=== PATIENT | male | born 1990 | race Hispanic/Latino ===

== ENCOUNTER 2017-03-30 11:42 | Emergency (ER) | payer BC | END 2017-03-30 12:18 | disposition home or self-care (01) | LOC: EDH 11:42 | DX: M54.5 Low back pain (principal); E11.9 Type 2 diabetes mellitus without complications; Z79.4 Long term (current) use of insulin; Z87.891 Personal history of nicotine dependence | CPT/HCPCS: 99281 ==

== ENCOUNTER 2017-06-27 | Emergency (ER) | payer BC, OTHER ==
[2017-06-27] MEDS ORDERED: LIDOCAINE HCL 2% JELLY 5 ML ONE (00:25)
[2017-06-27] MEDS ORDERED: TETANUS/DIPHTHERIA TOXOID [ADULT] 0.5 ML VIAL IM ONE (00:26)
[2017-06-27] MEDS ORDERED: ONDANSETRON ODT 4 MG TAB ONE (01:16)
[2017-06-27] MEDS ORDERED: MORPHINE SULFATE 8 MG/ML VIAL ONE (01:17)
== END 2017-06-27 01:31 | disposition home or self-care (01) ==
LOC: EDH
DX: T25.221A Burn of second degree of right foot, initial encounter (principal); T31.0 Burns involving less than 10% of body surface; E11.9 Type 2 diabetes mellitus without complications; Z79.4 Long term (current) use of insulin; X12.XXXA Contact with other hot fluids, initial encounter; Y93.89 Activity, other specified; Y92.89 Other specified places as the place of occurrence of the external cause; Y99.8 Other external cause status
CPT/HCPCS: 16020; 90471; 90714; 96372; 99284; J2270

== ENCOUNTER 2017-07-02 16:56 | Emergency (ER) | payer OTHER | END 2017-07-02 17:50 | disposition home or self-care (01) | LOC: EDH 16:56 | DX: T25.221D Burn of second degree of right foot, subsequent encounter (principal); E11.9 Type 2 diabetes mellitus without complications; Z79.4 Long term (current) use of insulin; X08.8XXD Exposure to other specified smoke, fire and flames, subsequent encounter ==